=== PATIENT | male | born 1965 | race African-American/Black ===

== ENCOUNTER 2020-03-30 23:40 | Emergency (ER) | payer OTHER ==
[~2020-03-30] VITALS: Ht 185.4 cm; Wt 94.3 kg
[2020-03-31 00:52] LABS: ABSOLUTE NEUTROPHILS 3.3 thou/uL (1.4-8.2); BASOPHILS 0.2 % (0.0-2.0); EOSINOPHILS 1.3 % (0.0-3.0); HEMATOCRIT 40.1 % (42.0-52.0); HEMOGLOBIN 13.3 gm/dL (14.0-18.0); LYMPHOCYTES 17.6 % (24.0-44.0); MCH 29.9 pg (26.0-34.0); MCHC 33.3 g/dL (28.0-37.0); MONOCYTES 3.3 % (1.0-8.0); PLATELET COUNT 319 thou/uL (150-400); POLYS 77.6 % (36.0-66.0); RBC 4.45 mil/uL (4.50-6.00); WBC 4.2 thou/uL (4.0-11.0)
[2020-03-31 00:54] LABS: URINE BILIRUBIN NEGATIVE (Negative); URINE BLOOD TRACE (Negative); URINE CLARITY CLEAR; URINE COLOR YELLOW; URINE GLUCOSE-RANDOM* NEGATIVE (Negative); URINE KETONES NEGATIVE (Negative); URINE LEUKOCYTES-REFLEX NEGATIVE (Negative); URINE NITRITE-REFLEX NEGATIVE (Negative); URINE PROTEIN (DIPSTICK) 1+ (Negative); URINE SPECIFIC GRAVITY >= 1.030 (1.005-1.035)
[2020-03-31 01:04] LABS: ALBUMIN 2.9 g/dL (3.4-5.0); ANION GAP 10 mmol/L (7-16); BUN 17 mg/dL (7-18); CALCIUM 8.3 mg/dL (8.5-10.1); CHLORIDE 103 mmol/L (98-107); CO2 23 mmol/L (21-32); CREATININE 1.4 mg/dL (0.7-1.3); GLUCOSE 115 mg/dL (74-106); SGPT 12 U/L (30-65); SODIUM 136 mmol/L (136-145); TOTAL BILIRUBIN 0.6 mg/dL (0.2-1.0); TOTAL PROTEIN 7.2 g/dL (6.4-8.2); TROPONIN-I <0.06 ng/mL (<0.06)
[2020-03-31 01:14] LABS: SGOT 48 U/L (15-37)
[2020-03-31 01:56] LABS: SQUAMOUS 4-10 Moderate /LPF (0-3)
[2020-03-31 01:57] LABS: BACTERIA-REFLEX 1-9 Few /HPF (None Seen); CELLULAR CASTS 4-10 Moderate /LPF (None Seen); CRYSTALS None Seen /LPF (None Seen); HYALINE CASTS 4-10 Moderate /LPF (None Seen); MUCUS 4-6 Moderate strn/LPF (None Seen); URINE RBC 3-10 Few /HPF (0-2); URINE WBC-REFLEX 0-5 Rare /HPF (0-5)
[2020-03-31 02:05] VITALS: BP 119/73
[2020-03-31 02:05] LABS: POTASSIUM 3.4 mmol/L (3.5-5.1)
[2020-03-31] MEDS ORDERED: PREDNISONE 20 M20 MG PO (02:32)
--- NOTE | 2020-03-31 08:47 | EKG ---
[facility] [place] [address] ELECTROCARDIOGRAM REPORT Name: KAJAL SMITH Room #: DEP 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
== END 2020-03-31 02:45 | disposition home or self-care (01) ==
LOC: ER 23:40
PROVIDERS: Emergency Medicine
DX: R53.1 Weakness (principal); F15.10 Other stimulant abuse, uncomplicated; R05 Cough; R19.7 Diarrhea, unspecified; R61 Generalized hyperhidrosis

== ENCOUNTER 2020-12-05 22:04 | Emergency (ER) | payer OTHER ==
[~2020-12-05] VITALS: Ht 185.4 cm; Wt 101.2 kg
[~2020-12-05 22:04] MED LIST: PREDNISONE 20 M20 MG PO
[2020-12-05] MEDS ORDERED: HYDROXYCHLOROQ200 M1 PO (22:19)
[2020-12-05] MEDS ORDERED: MELOXICAM15 MG PO (22:19)
[2020-12-05 23:17] LABS: ABSOLUTE NEUTROPHILS 5.6 thou/uL (1.4-8.2); BASOPHILS 0.4 % (0.0-2.0); EOSINOPHILS 0.5 % (0.0-3.0); HEMATOCRIT 39.6 % (42.0-52.0); HEMOGLOBIN 12.9 gm/dL (14.0-18.0); LYMPHOCYTES 21.6 % (24.0-44.0); MCH 29.1 pg (26.0-34.0); MCHC 32.6 g/dL (28.0-37.0); MCV 89.1 fL (80.0-100.0); MONOCYTES 3.4 % (1.0-8.0); PLATELET COUNT 417 thou/uL (150-400); POLYS 74.1 % (36.0-66.0); RBC 4.44 mil/uL (4.50-6.00); RDW 14.4 % (10.5-14.5); WBC 7.6 thou/uL (4.0-11.0)
[2020-12-05 23:21] LABS: URINE BILIRUBIN NEGATIVE (Negative); URINE BLOOD NEGATIVE (Negative); URINE CLARITY CLEAR; URINE COLOR YELLOW; URINE GLUCOSE-RANDOM* NEGATIVE (Negative); URINE KETONES TRACE (Negative); URINE NITRITE-REFLEX NEGATIVE (Negative); URINE PROTEIN (DIPSTICK) TRACE (Negative); URINE SPECIFIC GRAVITY >= 1.030 (1.005-1.035)
[2020-12-05 23:22] LABS: URINE LEUKOCYTES-REFLEX 1+ (Negative)
[2020-12-05 23:31] LABS: ANION GAP 9 mmol/L (7-16); BUN 11 mg/dL (7-18); CALCIUM 8.9 mg/dL (8.5-10.1); CHLORIDE 101 mmol/L (98-107); CO2 24 mmol/L (21-32); CREATININE 0.9 mg/dL (0.7-1.3); GLUCOSE 116 mg/dL (74-106); SODIUM 134 mmol/L (136-145)
[2020-12-05 23:37] LABS: ALBUMIN 3.1 g/dL (3.4-5.0); DIRECT BILIRUBIN < 0.1 mg/dL (<0.1-0.2); SGOT 35 U/L (15-37); SGPT 13 U/L (16-63); TOTAL BILIRUBIN 0.8 mg/dL (0.2-1.0); TOTAL PROTEIN 7.7 g/dL (6.4-8.2)
[2020-12-05 23:50] LABS: POTASSIUM 4.9 mmol/L (3.5-5.1)
[2020-12-05 23:55] LABS: BACTERIA-REFLEX 1-9 Few /HPF (None Seen); CASTS None Seen /LPF (None Seen); MUCUS >6 Heavy strn/LPF (None Seen); SQUAMOUS 0-3 Few /LPF (0-3); URINE RBC 3-10 Few /HPF (0-2); URINE WBC-REFLEX 6-15 Few /HPF (0-5)
[2020-12-05 23:56] LABS: CRYSTALS None Seen /LPF (None Seen)
[2020-12-06] MEDS ORDERED: DOXYCYCLINE 10100 MG PO (02:33)
[2020-12-06 02:49] VITALS: BP 155/81
== END 2020-12-06 02:50 | disposition home or self-care (01) ==
LOC: ER 22:04
PROVIDERS: Emergency Medicine
DX: N39.0 Urinary tract infection, site not specified (principal); N28.9 Disorder of kidney and ureter, unspecified; J44.9 Chronic obstructive pulmonary disease, unspecified; Z79.899 Other long term (current) drug therapy

== ENCOUNTER 2021-09-08 15:56 | Emergency (ER) | payer OTHER ==
[~2021-09-08] VITALS: Ht 185.4 cm; Wt 113.4 kg
[~2021-09-08 15:56] MED LIST changes: +DOXYCYCLINE 10100 MG PO; +HYDROXYCHLOROQ200 M1 PO; +MELOXICAM15 MG PO
[2021-09-08 16:00] VITALS: BP 121/63
[2021-09-08] MEDS ORDERED: PREDNISONE 20 M20 MG PO (16:18)
== END 2021-09-08 16:35 | disposition home or self-care (01) ==
LOC: ER 15:56
DX: M19.90 Unspecified osteoarthritis, unspecified site (principal); M79.89 Other specified soft tissue disorders; Z76.0 Encounter for issue of repeat prescription; J44.9 Chronic obstructive pulmonary disease, unspecified; Z79.899 Other long term (current) drug therapy

== ENCOUNTER 2021-09-19 17:09 | Emergency (ER) | payer OTHER ==
[~2021-09-19] VITALS: Ht 188 cm; Wt 104.8 kg
[2021-09-19 17:31] VITALS: BP 130/80
[2021-09-19] MEDS ORDERED: PROAIR HFA8.5 GM INH (17:36)
[2021-09-19] MEDS ORDERED: TIZANIDINE HCL4 M2 PO (17:37)
[2021-09-19] MEDS ORDERED: DULOXETINE HCL60 MG PO (17:37)
[2021-09-19] MEDS ORDERED: PREDNISONE 20 M20 MG PO (17:38)
== END 2021-09-19 19:10 | disposition home or self-care (01) ==
LOC: ER 17:09
DX: M06.842 Other specified rheumatoid arthritis, left hand (principal); M06.841 Other specified rheumatoid arthritis, right hand; J44.9 Chronic obstructive pulmonary disease, unspecified; Z79.899 Other long term (current) drug therapy

== ENCOUNTER 2021-11-28 14:45 | Emergency (ER) | payer OTHER ==
[~2021-11-28] VITALS: Ht 185.4 cm; Wt 117.9 kg
[~2021-11-28 14:45] MED LIST changes: +DULOXETINE HCL60 MG PO; +PROAIR HFA8.5 GM INH; +TIZANIDINE HCL4 M2 PO
[2021-11-28 14:47] VITALS: BP 160/81
[2021-11-28] MEDS ORDERED: PREDNISONE 20 M20 MG PO (15:05)
== END 2021-11-28 15:38 | disposition home or self-care (01) ==
LOC: ER 14:45
DX: M79.10 Myalgia, unspecified site (principal); R22.31 Localized swelling, mass and lump, right upper limb; R22.43 Localized swelling, mass and lump, lower limb, bilateral; J44.9 Chronic obstructive pulmonary disease, unspecified; Z79.899 Other long term (current) drug therapy